=== PATIENT | male | born 1940 | race Caucasian/White ===

== ENCOUNTER 2021-06-06 10:28 | Emergency (ER) | payer MEDICARE, BC ==
[~2021-06-06] VITALS: Ht 188 cm; Wt 79.4 kg
--- NOTE | 2021-06-06 10:40 | NUR ---
BIB SELF C/O GFL WITH L EAR LACERATION. AMBULATORY, [id number]. PLACED ON BED, L EAR CLEANSED WITH 0.9NS.
--- NOTE | 2021-06-06 11:00 | NUR ---
AT BED SIDE
--- NOTE | 2021-06-06 11:45 | NUR ---
PATIENT WENT FOR CT HEAD VIA [facility].
[2021-06-06] MEDS ORDERED: LIDOCAINE HCL/PF 1% 30 ML VIAL TP ONE (12:30)
[2021-06-06] MEDS ORDERED: TDAP [DIPH/PERTUSSIS/TET] 0.5 ML VIAL IM ONE (12:52)
[2021-06-06] MEDS ORDERED: LIDOCAINE 1% INJ 50 ML MDV IJ ONE (12:57)
[2021-06-06] MEDS: TDAP [DIPH/PERTUSSIS/TET] 0.5 ML VIAL IM ONE ×2 (13:13→13:17)
--- NOTE | 2021-06-06 13:30 | NUR ---
DR AVELAR AT BED SIDE FOR SUTURING OF L EAR.
[2021-06-06 14:12] VITALS: BP 115/77
== END 2021-06-06 14:13 | disposition home or self-care (01) ==
LOC: ER 10:28
DX: S01.312A Laceration without foreign body of left ear, initial encounter (principal); Z86.69 Personal history of other diseases of the nervous system and sense organs; W18.09XA Striking against other object with subsequent fall, initial encounter; Y93.89 Activity, other specified; Y92.89 Other specified places as the place of occurrence of the external cause; Y99.8 Other external cause status
CPT/HCPCS: 12013; 70450; 72125; 90471; 90715; 93005; 99284; A6403; J3490 ×2